=== PATIENT | female | born 1935 | race Native Hawaiian/Other Pacific Islander ===

== ENCOUNTER 2020-06-14 10:25 | Inpatient (IN) | payer OTHER, MEDICAID ==
[~2020-06-14] VITALS: Ht 160 cm; Wt 61.9 kg
[~2020-06-14 10:25] MED LIST: ALBUAER3 IN; ALEN70TA74 PO; ASPI1TAB19 PO; CARV12.544 PO; CHOL20007 OR; FLUT110A INH; FLUT50SP; INSLANTI SC; LEVO750T64 PO; LOSA-39; SIMV-8 PO
[2020-06-14] MEDS ORDERED: SODIUM CHLORIDE 0.9% 500 ML IV ONE (11:00)
[2020-06-14 11:02] LABS: Basophils # (auto) 0 10 ^3/uL (0-0.2); Eosinophils # (auto) 0.1 10 ^3/uL (0-0.8); Lymphocytes # (auto) 0.8 10 ^3/uL (0.4-5.4); Monocytes # (auto) 0.2 10 ^3/uL (0-1.3); Nucleated Red Blood Cells % 0.1 %
[2020-06-14 11:04] LABS: Basophils % (auto) 0.4 % (0.0-2.0); Eosinophils % (auto) 2.6 % (0.0-7.0); Hematocrit 20.3 % (36.0-46.0); Lymphocytes % (auto) 21.2 % (10.0-50.0); Mean Corpuscular Hemoglobin 34.3 pg (28.0-32.0); Mean Corpuscular Hgb Conc. 34.1 g/dL (32.0-36.0); Mean Corpuscular Volume 100.4 fL (80.0-100.0); Monocytes % (auto) 4.9 % (0.0-12.0); Neutrophils # (auto) 2.6 10 ^3/uL (1.6-8.6); Neutrophils % (auto) 70.9 % (37.0-80.0); Platelet Count (auto) 77 10^3/uL (140-450); Red Blood Cells 2.03 10^6/uL (4.0-5.20); White Blood Cell 3.7 10^3/uL (4.4-10.8)
[2020-06-14 11:17] LABS: Hemoglobin 6.9 g/dL (12.2-16.2)
[2020-06-14 11:18] LABS: Albumin 3.5 g/dL (3.4-5.0); Anion Gap 4 (5-15); Blood Urea Nitrogen 25 mg/dL (7-18); Calcium 8.7 mg/dL (8.5-10.1); Carbon Dioxide 30 mmol/L (21-32); Chloride 103 mmol/L (98-107); Glucose 319 mg/dL (74-106); Potassium 4.5 mmol/L (3.5-5.1); Sodium 137 mmol/L (136-145)
[2020-06-14 11:23] LABS: Alanine Aminotransferase 15 U/L (13-56); Alkaline Phosphatase 54 U/L (45-117); Aspartate Aminotransferase 14 U/L (15-37); BUN/Creatinine Ratio 16.3; Bilirubin, Total 0.9 mg/dL (0.2-1.0); GFR African American 41 mL/min; GFR Non-African American 34 mL/min; Total Protein 7.1 g/dL (6.4-8.2)
[2020-06-14] MEDS ORDERED: AZITHROMYCIN 500MG/ 250ML 250 ML IV ONE (11:30)
[2020-06-14] MEDS ORDERED: ONDANSETRON HCL 4 MG/2 ML VIAL IV PRN (12:45)
[2020-06-14] MEDS ORDERED: HYDROcodone-ACET 5/325MG TAB PO PRN (12:45)
[2020-06-14] MEDS ORDERED: MORPHINE SULF INJ 2 MG/ML SYRINGE 1ML IV PRN ×2 (12:45)
[2020-06-14] MEDS ORDERED: DEXTROSE (50%) 50ML SYRG IV PRN (12:45)
[2020-06-14] MEDS ORDERED: NITROGLYCERIN 0.4 MG SL TAB SL PRN (12:45)
[2020-06-14] MEDS ORDERED: ACETAMINOPHEN 500 MG TAB PO PRN (12:45)
[2020-06-14 14:48] LABS: Urine Bacteria FEW /hpf (None Seen); Urine Blood Negative /uL (Negative); Urine Hyaline Cast FEW /lpf (0 - 2); Urine WBC 9 /hpf (0 - 5)
[2020-06-14] MEDS: ACCU-CHEK COMFORT CURVE STRIP VI SCH (15:15)
[2020-06-14] MEDS: InsuLIN REG 1unit/0.01ml Soln (100units/ml) SC SCH (16:41)
[2020-06-14 17:04] VITALS: BP 175/59
[2020-06-14 17:16] VITALS: BP 161/52
[2020-06-14] MEDS ORDERED: AZAT50TA22 PO (17:19)
[2020-06-14] MEDS ORDERED: LEV25T PO (17:19)
[2020-06-14] MEDS ORDERED: ALLO100T PO (17:19)
[2020-06-14] MEDS ORDERED: COLC0.6T56 PO (17:20)
[2020-06-14 17:34] VITALS: BP 156/59
[2020-06-14] MEDS: IPRATROPIUM BROM 0.5 MG/2.5ML INH SOL NEB SCH (18:00)
[2020-06-14] MEDS: ALBUTEROL SULF 2.5 MG/0.5ML(0.5%) NEB SOLN NEB SCH (18:00)
[2020-06-14] MEDS ORDERED: LATA0.0019 LEFTEYE (18:38)
[2020-06-14 22:23] LABS: % Iron Saturation 62.6 % (15-50)
[2020-06-14] MEDS: CARVEDILOL 3.125 MG TAB PO SCH (23:48)
[2020-06-15] MEDS ORDERED: hydrALAZINE HCL 20 MG/ML VL IV ONE (01:45)
[2020-06-15] MEDS: InsuLIN REG 1unit/0.01ml Soln (100units/ml) SC SCH ×5 (05:00→21:23)
[2020-06-15] MEDS: ACCU-CHEK COMFORT CURVE STRIP VI SCH ×5 (05:00→21:23)
[2020-06-15 05:08] VITALS: BP 157/60
[2020-06-15] MEDS: IPRATROPIUM BROM 0.5 MG/2.5ML INH SOL NEB SCH ×3 (06:40→18:37)
[2020-06-15] MEDS: ALBUTEROL SULF 2.5 MG/0.5ML(0.5%) NEB SOLN NEB SCH ×3 (06:41→18:37)
[2020-06-15 08:00] VITALS: BP 142/56
[2020-06-15] MEDS: cefTRIAXone 1GM/50ML D5W 50 ML IV SCH (09:17)
[2020-06-15] MEDS: CARVEDILOL 3.125 MG TAB PO SCH ×2 (09:47→21:24)
[2020-06-15] MEDS: FAMOTIDINE 20 MG TAB PO SCH (09:47)
[2020-06-15] MEDS ORDERED: LOSARTAN POTASSIUM 25 MG TAB PO ONE (10:30)
[2020-06-15] MEDS ORDERED: LEVOTHYROXINE SODIUM 25 MCG TAB PO ONE (10:30)
[2020-06-15] MEDS ORDERED: FOLIC ACID 1 MG in D5W 5% 50 ML INJ ONE (10:30)
[2020-06-15] MEDS ORDERED: COLCHICINE 0.6 MG CAP PO ONE (10:30)
[2020-06-15 10:39] LABS: Basophils # (auto) 0 10 ^3/uL (0-0.2); Basophils % (auto) 0.4 % (0.0-2.0); Eosinophils # (auto) 0.2 10 ^3/uL (0-0.8); Eosinophils % (auto) 3.8 % (0.0-7.0); Hematocrit 25.4 % (36.0-46.0); Hemoglobin 8.7 g/dL (12.2-16.2); Lymphocytes # (auto) 1.2 10 ^3/uL (0.4-5.4); Lymphocytes % (auto) 23.7 % (10.0-50.0); Mean Corpuscular Hemoglobin 32.2 pg (28.0-32.0); Mean Corpuscular Hgb Conc. 34.3 g/dL (32.0-36.0); Mean Corpuscular Volume 93.9 fL (80.0-100.0); Monocytes # (auto) 0.3 10 ^3/uL (0-1.3); Neutrophils # (auto) 3.2 10 ^3/uL (1.6-8.6); Neutrophils % (auto) 66.1 % (37.0-80.0); Platelet Count (auto) 70 10^3/uL (140-450); Red Blood Cells 2.71 10^6/uL (4.0-5.20); Red Cell Distribution Width 21.4 % (11.8-14.3); White Blood Cell 4.9 10^3/uL (4.4-10.8)
[2020-06-15] MEDS: AZITHROMYCIN 500MG/ 250ML 250 ML IV SCH (10:42)
[2020-06-15 10:43] LABS: BUN/Creatinine Ratio 18.5; Calcium 8.5 mg/dL (8.5-10.1); Potassium 4.2 mmol/L (3.5-5.1)
[2020-06-15 11:11] LABS: Folate (Folic Acid) 23.6 ng/mL (5.38-24)
[2020-06-15 16:00] VITALS: BP 148/61
[2020-06-15 20:00] VITALS: BP 168/61
[2020-06-15 22:00] VITALS: BP 168/61
[2020-06-16 05:00] VITALS: BP 165/60
[2020-06-16] MEDS: InsuLIN REG 1unit/0.01ml Soln (100units/ml) SC SCH ×4 (06:38→22:00)
[2020-06-16] MEDS: ACCU-CHEK COMFORT CURVE STRIP VI SCH ×4 (06:38→22:29)
[2020-06-16] MEDS: LEVOTHYROXINE SODIUM 25 MCG TAB PO SCH (06:38)
[2020-06-16 07:06] LABS: Basophils # (auto) 0 10 ^3/uL (0-0.2); Eosinophils # (auto) 0.2 10 ^3/uL (0-0.8); Hemoglobin 8.5 g/dL (12.2-16.2); Monocytes # (auto) 0.3 10 ^3/uL (0-1.3); Potassium 4.1 mmol/L (3.5-5.1)
[2020-06-16 07:07] LABS: INR 1.03 (0.9-1.15); Partial Thromboplastin Time 25.6 sec (23.0-31.2)
[2020-06-16 07:10] LABS: Basophils % (auto) 0.5 % (0.0-2.0); Eosinophils % (auto) 4.5 % (0.0-7.0); Hematocrit 24.5 % (36.0-46.0); Lymphocytes # (auto) 1.1 10 ^3/uL (0.4-5.4); Lymphocytes % (auto) 26.9 % (10.0-50.0); Mean Corpuscular Hemoglobin 32.6 pg (28.0-32.0); Mean Corpuscular Hgb Conc. 34.6 g/dL (32.0-36.0); Mean Corpuscular Volume 94.1 fL (80.0-100.0); Monocytes % (auto) 8.4 % (0.0-12.0); Neutrophils # (auto) 2.4 10 ^3/uL (1.6-8.6); Neutrophils % (auto) 59.7 % (37.0-80.0); Nucleated Red Blood Cells % 0.1 %; Platelet Count (auto) 63 10^3/uL (140-450)
[2020-06-16] MEDS: ALBUTEROL SULF 2.5 MG/0.5ML(0.5%) NEB SOLN NEB SCH ×3 (07:10→19:44)
[2020-06-16] MEDS: IPRATROPIUM BROM 0.5 MG/2.5ML INH SOL NEB SCH ×3 (07:10→19:44)
[2020-06-16 07:11] LABS: BUN/Creatinine Ratio 17.9; Calcium 8.6 mg/dL (8.5-10.1)
[2020-06-16 07:26] LABS: Red Cell Distribution Width 21.3 % (11.8-14.3)
[2020-06-16 08:22] VITALS: BP 167/57
[2020-06-16] MEDS: cefTRIAXone 1GM/50ML D5W 50 ML IV SCH (08:38)
[2020-06-16] MEDS: AZITHROMYCIN 500MG/ 250ML 250 ML IV SCH (09:26)
[2020-06-16] MEDS: COLCHICINE 0.6 MG CAP PO SCH (09:26)
[2020-06-16] MEDS: CARVEDILOL 3.125 MG TAB PO SCH ×2 (09:27→22:29)
[2020-06-16] MEDS: FAMOTIDINE 20 MG TAB PO SCH (09:28)
[2020-06-16] MEDS ORDERED: LOSARTAN POTASSIUM 25 MG TAB PO SCH (10:00)
[2020-06-16] MEDS ORDERED: LOSARTAN POTASSIUM 25 MG TAB PO ONE (11:00)
[2020-06-16] MEDS: FOLIC ACID 1 MG in D5W 5% 50 ML INJ SCH (11:43)
[2020-06-16 13:33] LABS: Basophils # (auto) 0 10 ^3/uL (0-0.2); Eosinophils # (auto) 0.2 10 ^3/uL (0-0.8); Hemoglobin 8.5 g/dL (12.2-16.2); Lymphocytes # (auto) 1.1 10 ^3/uL (0.4-5.4); Neutrophils # (auto) 2.7 10 ^3/uL (1.6-8.6)
[2020-06-16 13:34] LABS: Basophils % (auto) 0.5 % (0.0-2.0); Eosinophils % (auto) 3.6 % (0.0-7.0); Hematocrit 24.3 % (36.0-46.0); Lymphocytes % (auto) 25.5 % (10.0-50.0); Mean Corpuscular Hemoglobin 33.1 pg (28.0-32.0); Mean Corpuscular Hgb Conc. 34.9 g/dL (32.0-36.0); Mean Corpuscular Volume 94.8 fL (80.0-100.0); Monocytes # (auto) 0.4 10 ^3/uL (0-1.3); Monocytes % (auto) 10.1 % (0.0-12.0); Neutrophils % (auto) 60.3 % (37.0-80.0); Nucleated Red Blood Cells % 0.1 %; Platelet Count (auto) 65 10^3/uL (140-450); Red Blood Cells 2.56 10^6/uL (4.0-5.20); White Blood Cell 4.4 10^3/uL (4.4-10.8)
[2020-06-16 13:38] LABS: Red Cell Distribution Width 21.2 % (11.8-14.3)
[2020-06-16 15:44] VITALS: BP 151/59
[2020-06-16 22:00] VITALS: BP 168/75
[2020-06-17 05:00] VITALS: BP 173/76
[2020-06-17] MEDS: IPRATROPIUM BROM 0.5 MG/2.5ML INH SOL NEB SCH ×3 (06:00→12:13)
[2020-06-17] MEDS: ALBUTEROL SULF 2.5 MG/0.5ML(0.5%) NEB SOLN NEB SCH ×3 (06:00→12:13)
[2020-06-17] MEDS: ACCU-CHEK COMFORT CURVE STRIP VI SCH ×2 (06:19→11:40)
[2020-06-17] MEDS: LEVOTHYROXINE SODIUM 25 MCG TAB PO SCH (06:54)
[2020-06-17] MEDS: InsuLIN REG 1unit/0.01ml Soln (100units/ml) SC SCH ×2 (06:54→11:30)
[2020-06-17 06:55] LABS: Basophils # (auto) 0 10 ^3/uL (0-0.2); Basophils % (auto) 0.5 % (0.0-2.0); Eosinophils # (auto) 0.2 10 ^3/uL (0-0.8); Eosinophils % (auto) 4.6 % (0.0-7.0); Hematocrit 24.6 % (36.0-46.0); Hemoglobin 8.5 g/dL (12.2-16.2); Lymphocytes # (auto) 1.1 10 ^3/uL (0.4-5.4); Lymphocytes % (auto) 30.1 % (10.0-50.0); Mean Corpuscular Hemoglobin 33.1 pg (28.0-32.0); Mean Corpuscular Hgb Conc. 34.5 g/dL (32.0-36.0); Mean Corpuscular Volume 95.8 fL (80.0-100.0); Monocytes # (auto) 0.4 10 ^3/uL (0-1.3); Monocytes % (auto) 10.1 % (0.0-12.0); Neutrophils # (auto) 2.1 10 ^3/uL (1.6-8.6); Neutrophils % (auto) 54.7 % (37.0-80.0); Nucleated Red Blood Cells % 0.2 %; Platelet Count (auto) 65 10^3/uL (140-450); Red Blood Cells 2.56 10^6/uL (4.0-5.20); White Blood Cell 3.8 10^3/uL (4.4-10.8)
[2020-06-17 07:16] LABS: Red Cell Distribution Width 20.9 % (11.8-14.3)
[2020-06-17 07:21] LABS: BUN/Creatinine Ratio 18.1; Calcium 8.5 mg/dL (8.5-10.1); Potassium 4.1 mmol/L (3.5-5.1)
[2020-06-17 08:00] VITALS: BP 181/74
[2020-06-17] MEDS: COLCHICINE 0.6 MG CAP PO SCH (08:36)
[2020-06-17] MEDS: FAMOTIDINE 20 MG TAB PO SCH (08:36)
[2020-06-17] MEDS: CARVEDILOL 3.125 MG TAB PO SCH (08:37)
[2020-06-17] MEDS: cefTRIAXone 1GM/50ML D5W 50 ML IV SCH (08:38)
[2020-06-17] MEDS ORDERED: AZITHROMYCIN 250 MG TAB PO SCH (10:00)
[2020-06-17] MEDS ORDERED: LOSARTAN POTASSIUM 25 MG TAB PO SCH (10:00)
[2020-06-17] MEDS ORDERED: LOSARTAN POTASSIUM 50 MG TAB PO ONE (11:30)
[2020-06-17] MEDS: FOLIC ACID 1 MG in D5W 5% 50 ML INJ SCH (11:50)
[2020-06-17 12:11] VITALS: BP 189/65
== END 2020-06-17 15:10 | disposition home or self-care (01) | DRG 809 ==
LOC: ER 10:25 → TELE 10:26 → TELE-CENTR 06-15 05:04
PROVIDERS: ADMIT Nurse Practitioner Acute Care; ATTEND Internal Medicine
DX: D61.818 Other pancytopenia (principal); I50.22 Chronic systolic (congestive) heart failure; I13.0 Hypertensive heart and chronic kidney disease with heart failure and stage 1 through stage 4 chronic kidney disease, or unspecified chronic kidney disease; J96.10 Chronic respiratory failure, unspecified whether with hypoxia or hypercapnia; D64.81 Anemia due to antineoplastic chemotherapy; T45.1X5A Adverse effect of antineoplastic and immunosuppressive drugs, initial encounter; Z20.822 Contact with and (suspected) exposure to COVID-19; N18.30 Chronic kidney disease, stage 3 unspecified; E78.5 Hyperlipidemia, unspecified; M81.0 Age-related osteoporosis without current pathological fracture; E03.9 Hypothyroidism, unspecified; J84.10 Pulmonary fibrosis, unspecified; E11.22 Type 2 diabetes mellitus with diabetic chronic kidney disease; E11.51 Type 2 diabetes mellitus with diabetic peripheral angiopathy without gangrene; D63.8 Anemia in other chronic diseases classified elsewhere; Z79.51 Long term (current) use of inhaled steroids; Z79.4 Long term (current) use of insulin; Z79.82 Long term (current) use of aspirin; Z79.899 Other long term (current) drug therapy; Z80.0 Family history of malignant neoplasm of digestive organs; Z82.49 Family history of ischemic heart disease and other diseases of the circulatory system; Z82.3 Family history of stroke; Z83.3 Family history of diabetes mellitus; Z99.81 Dependence on supplemental oxygen; J44.9 Chronic obstructive pulmonary disease, unspecified
CPT/HCPCS: 36415; 71045; 74176; 80048; 80053; 81001; 82270; 82607; 82728; 82746; 82962; 83036; 83540; 83550; 83615; 83735; 84443; 84484; 85025; 85045; 85610; 85730; 86141; 86850; 86880; 86900; 86901; 86920; 87070; 87077; 87081; 87186; 87205; 87426; 87804; 93005; 94640; 96365; 96366; 96375; G0378; J0696; J1815; J7060

== ENCOUNTER 2021-02-04 11:56 | Inpatient (IN) | payer OTHER, MEDICAID ==
[~2021-02-04] VITALS: Ht 154.9 cm; Wt 58.5 kg
[~2021-02-04 11:56] MED LIST changes: +ALLO100T PO; +AZAT50TA2 PO; +COLC0.6T56 PO; -FLUT50SP; +LATA0.0019 LEFTEYE; +LEV25T PO; -LEVO750T64 PO; -LOSA-39
[2021-02-04] MEDS ORDERED: methylPREDNISolone SOD SUCC 125 MG/2 ML VL IV ONE (12:15)
[2021-02-04 13:22] LABS: Basophils # (auto) 0 10 ^3/uL (0-0.2); Basophils % (auto) 0.5 % (0.0-2.0); Eosinophils # (auto) 0 10 ^3/uL (0-0.8); Eosinophils % (auto) 0.5 % (0.0-7.0); Hematocrit 32.2 % (36.0-46.0); Hemoglobin 10.3 g/dL (12.2-16.2); Lymphocytes # (auto) 0.5 10 ^3/uL (0.4-5.4); Lymphocytes % (auto) 10.2 % (10.0-50.0); Mean Corpuscular Hemoglobin 31.5 pg (28.0-32.0); Mean Corpuscular Hgb Conc. 31.9 g/dL (32.0-36.0); Mean Corpuscular Volume 98.5 fL (80.0-100.0); Monocytes # (auto) 0.6 10 ^3/uL (0-1.3); Monocytes % (auto) 11.3 % (0.0-12.0); Neutrophils # (auto) 3.8 10 ^3/uL (1.6-8.6); Neutrophils % (auto) 77.5 % (37.0-80.0); Red Blood Cells 3.27 10^6/uL (4.0-5.20); Red Cell Distribution Width 14.4 % (11.8-14.3); White Blood Cell 4.9 10^3/uL (4.4-10.8)
[2021-02-04 13:39] LABS: Albumin 2.9 g/dL (3.4-5.0); Anion Gap 7 (5-15); Blood Urea Nitrogen 35 mg/dL (7-18); Carbon Dioxide 27 mmol/L (21-32); Chloride 95 mmol/L (98-107); Glucose 156 mg/dL (74-106); Potassium 4.9 mmol/L (3.5-5.1); Sodium 129 mmol/L (136-145)
[2021-02-04 13:47] LABS: Alanine Aminotransferase 25 U/L (13-56); Alkaline Phosphatase 56 U/L (45-117); Aspartate Aminotransferase 35 U/L (15-37); BUN/Creatinine Ratio 22.4; Bilirubin, Total 0.5 mg/dL (0.2-1.0); CRP High Sensitivity 4.16 mg/dL (< 0.3); GFR African American 40 mL/min; GFR Non-African American 33 mL/min; Total Protein 7.3 g/dL (6.4-8.2)
[2021-02-04] MEDS ORDERED: ASCORBIC ACID 500 MG TAB PO ONE (14:30)
[2021-02-04] MEDS ORDERED: ZINC SULFATE 220mg CAP or TAB PO ONE (14:30)
[2021-02-04] MEDS ORDERED: CHOLECALCIFEROL (VITD3) 2,000 UNIT CAP/TAB PO ONE (14:30)
[2021-02-04] MEDS ORDERED: AZITHROMYCIN 500MG/ 250ML 250 ML IV ONE (14:30)
[2021-02-04] MEDS ORDERED: MORPHINE SULFATE INJECTION 2 MG/ML SYRG IV PRN (15:15)
[2021-02-04] MEDS ORDERED: ACETAMINOPHEN 500 MG TAB PO PRN (15:15)
[2021-02-04] MEDS ORDERED: DEXTROSE (50%) 50ML SYRG IV PRN (15:15)
[2021-02-04] MEDS ORDERED: NITROGLYCERIN 0.4 MG SL TAB SL PRN (15:15)
[2021-02-04] MEDS: InsuLIN REG 1unit/0.01ml Soln (100units/ml) SC SCH ×2 (17:21→22:00)
[2021-02-04] MEDS: ACCU-CHEK COMFORT CURVE STRIP VI SCH ×2 (17:25→22:00)
[2021-02-04] MEDS: LATANOPROST 0.005 % OPTH(EYE) SOL 2.5ML LEFTEYE SCH (19:16)
[2021-02-04 20:25] VITALS: BP 165/73
[2021-02-04 22:00] VITALS: BP 148/56
[2021-02-04] MEDS: BUDESONIDE (INHALATION) 180 MCG IH IN SCH (22:00)
[2021-02-04] MEDS: CARVEDILOL 12.5 MG TAB PO SCH (23:21)
[2021-02-05 05:00] VITALS: BP 157/65
[2021-02-05 05:49] LABS: Basophils # (auto) 0 10 ^3/uL (0-0.2); Basophils % (auto) 0.1 % (0.0-2.0); Eosinophils # (auto) 0 10 ^3/uL (0-0.8); Hematocrit 32.1 % (36.0-46.0); Hemoglobin 10.6 g/dL (12.2-16.2); Lymphocytes # (auto) 0.5 10 ^3/uL (0.4-5.4); Lymphocytes % (auto) 16.3 % (10.0-50.0); Mean Corpuscular Hemoglobin 32.3 pg (28.0-32.0); Mean Corpuscular Hgb Conc. 32.9 g/dL (32.0-36.0); Mean Corpuscular Volume 98.2 fL (80.0-100.0); Monocytes # (auto) 0.2 10 ^3/uL (0-1.3); Monocytes % (auto) 5.6 % (0.0-12.0); Neutrophils # (auto) 2.2 10 ^3/uL (1.6-8.6); Red Blood Cells 3.27 10^6/uL (4.0-5.20); Red Cell Distribution Width 14.2 % (11.8-14.3); White Blood Cell 2.9 10^3/uL (4.4-10.8)
[2021-02-05] MEDS: InsuLIN REG 1unit/0.01ml Soln (100units/ml) SC SCH ×4 (05:56→22:00)
[2021-02-05 06:03] LABS: Albumin 2.8 g/dL (3.4-5.0); Calcium 8.3 mg/dL (8.5-10.1); Potassium 4.8 mmol/L (3.5-5.1)
[2021-02-05] MEDS: LEVOTHYROXINE SODIUM 25 MCG TAB PO SCH (06:08)
[2021-02-05] MEDS: INSULIN LANTUS (GLARGINE) 1 /0.01ml (100units/ml) SC SCH (06:11)
[2021-02-05 06:16] LABS: BUN/Creatinine Ratio 22.1; Bilirubin, Total 0.5 mg/dL (0.2-1.0); Total Protein 7.5 g/dL (6.4-8.2)
[2021-02-05] MEDS: ACCU-CHEK COMFORT CURVE STRIP VI SCH ×4 (06:20→22:05)
[2021-02-05] MEDS: ALBUTEROL SULF HFA 90MCG INH 200DOSE IN PRN (07:00)
[2021-02-05] MEDS: BUDESONIDE (INHALATION) 180 MCG IH IN SCH ×2 (07:00→21:07)
[2021-02-05 09:00] VITALS: BP 145/61
[2021-02-05] MEDS: cefTRIAXone 1GM/50ML D5W 50 ML IV SCH (09:22)
[2021-02-05] MEDS: DexAMETHasone SOD PHOS 10MG/1ML VIAL INJ IV SCH (09:22)
[2021-02-05] MEDS: ZINC SULFATE 220mg CAP or TAB PO SCH (09:22)
[2021-02-05] MEDS: IVERMECTIN 3 MG TAB PO SCH (09:23)
[2021-02-05] MEDS: ASPirin-EC 81 mg tab PO SCH (09:23)
[2021-02-05] MEDS: CARVEDILOL 12.5 MG TAB PO SCH ×2 (09:23→22:06)
[2021-02-05] MEDS: CHOLECALCIFEROL (VITD3) 2,000 UNIT CAP/TAB PO SCH (09:24)
[2021-02-05] MEDS: ASCORBIC ACID 1,000 MG TAB PO SCH (09:24)
[2021-02-05] MEDS: ENOXAPARIN SOD 40 MG/0.4 ML SYRINGE SC SCH (09:24)
[2021-02-05] MEDS: ALLOPURINOL 100 MG TAB PO SCH (09:24)
[2021-02-05] MEDS: AZITHROMYCIN 500MG/ 250ML 250 ML IV SCH (10:40)
[2021-02-05 13:00] VITALS: BP 132/56
[2021-02-05] MEDS ORDERED: IOHEXOL 350 MG/ML 100ML IJ ONE (16:06)
[2021-02-05 17:00] VITALS: BP 124/52
[2021-02-05] MEDS: LATANOPROST 0.005 % OPTH(EYE) SOL 2.5ML LEFTEYE SCH (17:27)
[2021-02-05 18:22] VITALS: BP 124/52
[2021-02-05 21:33] VITALS: BP 134/54
[2021-02-06 05:30] VITALS: BP 151/70
[2021-02-06] MEDS: INSULIN LANTUS (GLARGINE) 1 /0.01ml (100units/ml) SC SCH (06:21)
[2021-02-06] MEDS: ACCU-CHEK COMFORT CURVE STRIP VI SCH ×4 (06:21→22:00)
[2021-02-06] MEDS: InsuLIN REG 1unit/0.01ml Soln (100units/ml) SC SCH ×4 (06:21→23:06)
[2021-02-06] MEDS: LEVOTHYROXINE SODIUM 25 MCG TAB PO SCH (06:51)
[2021-02-06] MEDS: ALBUTEROL SULF HFA 90MCG INH 200DOSE IN PRN (08:00)
[2021-02-06] MEDS: BUDESONIDE (INHALATION) 180 MCG IH IN SCH ×2 (08:01→19:04)
[2021-02-06] MEDS: cefTRIAXone 1GM/50ML D5W 50 ML IV SCH (08:29)
[2021-02-06 09:00] VITALS: BP 146/53
[2021-02-06] MEDS: ZINC SULFATE 220mg CAP or TAB PO SCH (09:48)
[2021-02-06] MEDS: DexAMETHasone SOD PHOS 10MG/1ML VIAL INJ IV SCH (09:48)
[2021-02-06] MEDS: AZITHROMYCIN 500MG/ 250ML 250 ML IV SCH (09:48)
[2021-02-06] MEDS: ENOXAPARIN SOD 40 MG/0.4 ML SYRINGE SC SCH (09:49)
[2021-02-06] MEDS: ALLOPURINOL 100 MG TAB PO SCH (09:49)
[2021-02-06] MEDS: CHOLECALCIFEROL (VITD3) 2,000 UNIT CAP/TAB PO SCH (09:49)
[2021-02-06] MEDS: IVERMECTIN 3 MG TAB PO SCH (09:49)
[2021-02-06] MEDS: ASPirin-EC 81 mg tab PO SCH (09:49)
[2021-02-06] MEDS: ASCORBIC ACID 1,000 MG TAB PO SCH (09:49)
[2021-02-06] MEDS: CARVEDILOL 12.5 MG TAB PO SCH ×2 (09:49→23:04)
[2021-02-06] MEDS ORDERED: guaiFENesin-DM 100/10mg/5ml SYR PO PRN (10:15)
[2021-02-06] MEDS ORDERED: ALBUTEROL SULF 2.5 MG/0.5ML(0.5%) NEB SOLN NEB PRN (10:15)
[2021-02-06] MEDS ORDERED: ALBUTEROL SULF 2.5 MG/0.5ML(0.5%) NEB SOLN NEB SCH (10:30)
[2021-02-06] MEDS: ALBUTEROL SULF 2.5 MG/0.5ML(0.5%) NEB SOLN NEB SCH ×2 (11:14→19:04)
[2021-02-06] MEDS: IPRATROPIUM BROM 0.5 MG/2.5ML INH SOL NEB SCH ×2 (11:14→19:04)
[2021-02-06 13:00] VITALS: BP 157/70
[2021-02-06] MEDS ORDERED: IPRATROPIUM BROM 0.5 MG/2.5ML INH SOL NEB SCH (14:00)
[2021-02-06 14:30] VITALS: BP 145/68
[2021-02-06 17:00] VITALS: BP 126/67
[2021-02-06] MEDS: LATANOPROST 0.005 % OPTH(EYE) SOL 2.5ML LEFTEYE SCH (17:38)
[2021-02-06 22:00] VITALS: BP 131/54
[2021-02-07 05:00] VITALS: BP 135/53
[2021-02-07] MEDS: ALBUTEROL SULF HFA 90MCG INH 200DOSE IN PRN ×2 (06:27→22:25)
[2021-02-07] MEDS: BUDESONIDE (INHALATION) 180 MCG IH IN SCH ×2 (06:27→22:25)
[2021-02-07] MEDS: LEVOTHYROXINE SODIUM 25 MCG TAB PO SCH (06:29)
[2021-02-07] MEDS: InsuLIN REG 1unit/0.01ml Soln (100units/ml) SC SCH ×4 (06:32→22:39)
[2021-02-07] MEDS: ACCU-CHEK COMFORT CURVE STRIP VI SCH ×4 (06:32→22:00)
[2021-02-07] MEDS: INSULIN LANTUS (GLARGINE) 1 /0.01ml (100units/ml) SC SCH (06:35)
[2021-02-07] MEDS: ENOXAPARIN SOD 40 MG/0.4 ML SYRINGE SC SCH (08:12)
[2021-02-07] MEDS: ZINC SULFATE 220mg CAP or TAB PO SCH (08:12)
[2021-02-07] MEDS: ALLOPURINOL 100 MG TAB PO SCH (08:12)
[2021-02-07] MEDS: cefTRIAXone 1GM/50ML D5W 50 ML IV SCH (08:12)
[2021-02-07] MEDS: IVERMECTIN 3 MG TAB PO SCH (08:12)
[2021-02-07] MEDS: ASCORBIC ACID 1,000 MG TAB PO SCH (08:12)
[2021-02-07] MEDS: CHOLECALCIFEROL (VITD3) 2,000 UNIT CAP/TAB PO SCH (08:13)
[2021-02-07] MEDS: CARVEDILOL 12.5 MG TAB PO SCH ×2 (08:13→22:37)
[2021-02-07] MEDS: ASPirin-EC 81 mg tab PO SCH (08:13)
[2021-02-07] MEDS: DexAMETHasone SOD PHOS 10MG/1ML VIAL INJ IV SCH (08:13)
[2021-02-07 09:00] VITALS: BP 118/48
[2021-02-07] MEDS: AZITHROMYCIN 500MG/ 250ML 250 ML IV SCH (10:27)
[2021-02-07 13:00] VITALS: BP 115/51
[2021-02-07 17:00] VITALS: BP 122/57
[2021-02-07] MEDS: LATANOPROST 0.005 % OPTH(EYE) SOL 2.5ML LEFTEYE SCH (18:34)
[2021-02-07 22:00] VITALS: BP 118/58
[2021-02-08 05:00] VITALS: BP 124/44
[2021-02-08 06:25] LABS: Basophils # (auto) 0 10 ^3/uL (0-0.2); Basophils % (auto) 0.1 % (0.0-2.0); Eosinophils # (auto) 0 10 ^3/uL (0-0.8); Hematocrit 30.6 % (36.0-46.0); Hemoglobin 10.2 g/dL (12.2-16.2); Lymphocytes # (auto) 0.5 10 ^3/uL (0.4-5.4); Lymphocytes % (auto) 8.5 % (10.0-50.0); Mean Corpuscular Hemoglobin 32.8 pg (28.0-32.0); Mean Corpuscular Hgb Conc. 33.4 g/dL (32.0-36.0); Mean Corpuscular Volume 98.1 fL (80.0-100.0); Monocytes # (auto) 0.4 10 ^3/uL (0-1.3); Monocytes % (auto) 7.7 % (0.0-12.0); Neutrophils # (auto) 4.6 10 ^3/uL (1.6-8.6); Neutrophils % (auto) 83.7 % (37.0-80.0); Red Blood Cells 3.12 10^6/uL (4.0-5.20); Red Cell Distribution Width 14.4 % (11.8-14.3); White Blood Cell 5.5 10^3/uL (4.4-10.8)
[2021-02-08 06:27] LABS: BUN/Creatinine Ratio 35.4; Calcium 8.2 mg/dL (8.5-10.1)
[2021-02-08] MEDS: BUDESONIDE (INHALATION) 180 MCG IH IN SCH (06:41)
[2021-02-08] MEDS: ALBUTEROL SULF HFA 90MCG INH 200DOSE IN PRN (06:41)
[2021-02-08] MEDS: LEVOTHYROXINE SODIUM 25 MCG TAB PO SCH (06:58)
[2021-02-08] MEDS: ACCU-CHEK COMFORT CURVE STRIP VI SCH ×2 (06:58→11:12)
[2021-02-08] MEDS: INSULIN LANTUS (GLARGINE) 1 /0.01ml (100units/ml) SC SCH (06:59)
[2021-02-08] MEDS: InsuLIN REG 1unit/0.01ml Soln (100units/ml) SC SCH ×2 (07:00→11:12)
[2021-02-08] MEDS: cefTRIAXone 1GM/50ML D5W 50 ML IV SCH (08:47)
[2021-02-08] MEDS: DexAMETHasone SOD PHOS 10MG/1ML VIAL INJ IV SCH (08:47)
[2021-02-08] MEDS: ZINC SULFATE 220mg CAP or TAB PO SCH (08:47)
[2021-02-08] MEDS: CHOLECALCIFEROL (VITD3) 2,000 UNIT CAP/TAB PO SCH (08:48)
[2021-02-08] MEDS: ASPirin-EC 81 mg tab PO SCH (08:48)
[2021-02-08] MEDS: ASCORBIC ACID 1,000 MG TAB PO SCH (08:48)
[2021-02-08] MEDS: ALLOPURINOL 100 MG TAB PO SCH (08:48)
[2021-02-08] MEDS: IVERMECTIN 3 MG TAB PO SCH (08:48)
[2021-02-08] MEDS: ENOXAPARIN SOD 40 MG/0.4 ML SYRINGE SC SCH (08:48)
[2021-02-08 08:51] VITALS: BP 134/57
[2021-02-08] MEDS: CARVEDILOL 12.5 MG TAB PO SCH (09:14)
[2021-02-08] MEDS: AZITHROMYCIN 500MG/ 250ML 250 ML IV SCH (09:49)
[2021-02-08 12:59] VITALS: BP 123/52
[2021-02-08 13:03] VITALS: BP 124/68
== END 2021-02-08 13:45 | disposition home or self-care (01) | DRG 871 ==
LOC: EDBD 11:56 → ER 11:56 → TELE-WESTW 15:09 → TELE-EAST 19:49
PROVIDERS: ADMIT Nurse Practitioner Acute Care; ATTEND Family Medicine
DX: A41.89 Other specified sepsis (principal); U07.1 COVID-19; J12.82 Pneumonia due to coronavirus disease 2019; J96.21 Acute and chronic respiratory failure with hypoxia; E87.1 Hypo-osmolality and hyponatremia; J44.0 Chronic obstructive pulmonary disease with (acute) lower respiratory infection; J44.1 Chronic obstructive pulmonary disease with (acute) exacerbation; E44.0 Moderate protein-calorie malnutrition; D63.8 Anemia in other chronic diseases classified elsewhere; D89.839 Cytokine release syndrome, grade unspecified; E11.22 Type 2 diabetes mellitus with diabetic chronic kidney disease; E87.8 Other disorders of electrolyte and fluid balance, not elsewhere classified; N18.32 Chronic kidney disease, stage 3b; M06.9 Rheumatoid arthritis, unspecified; Z99.81 Dependence on supplemental oxygen; E78.5 Hyperlipidemia, unspecified; I12.9 Hypertensive chronic kidney disease with stage 1 through stage 4 chronic kidney disease, or unspecified chronic kidney disease; Z79.4 Long term (current) use of insulin; Z79.51 Long term (current) use of inhaled steroids; Z79.82 Long term (current) use of aspirin; Z79.899 Other long term (current) drug therapy; Z80.0 Family history of malignant neoplasm of digestive organs; Z82.3 Family history of stroke; Z82.49 Family history of ischemic heart disease and other diseases of the circulatory system; Z83.3 Family history of diabetes mellitus
CPT/HCPCS: 36415; 71045; 71275; 80048; 80053; 82728; 82962; 83605; 83880; 84484; 85025; 85379; 86141; 87040; 87081; 87426; 93005; 93970; 94640; 96365; 96366; 96375; 99291; G0378; J0696; J1100; J1815